=== PATIENT | male | born 1955 | race Caucasian/White ===

== ENCOUNTER → 2018-03-26 | Outpatient (CLI) | payer OTHER ==
[~2018-03-26] MED LIST: ADULT LOW DOSE81 MG PO; ASPIRIN EC325 M1; CELEBREX 200 M200 MG PO; DOCUSATE SODIU100 MG PO; FISH OIL PO; FLOMAX0.4 MG PO; GLUCOSAMINE &1 EAC1 PO; HYDROCODON-ACE1 EAC7 PO; MOBIC15 MG PO; MULTIVITAMINS1 EAC7 PO; OXYCODONE HCL5 M1 PO; PROBIOTIC1 EAC2 PO; RESVERATROL100 MG PO; TUMERIC; TUMERSAID TABL1 EACH PO; VITAMIN C PO; VITAMIN D1000 UNI1 PO; VITAMIN D2000 UNIT PO; VITAMIN K240 MCG PO; XARELTO10 M1 PO
--- NOTE | ~2018-03-26 | PAINCON ---
[address] [address] PAIN MANAGEMENT CONSULTATION Name: KESHA SALDANA Room: [facility].Hever.#: [id number] Admission: 03/26/18 Attend Phys: Tucker Leger MD Discharge: Date of : 53 Report #: [id number] THIS REPORT FOR: //name// CC: Tucker Shankar DATE OF SERVICE: 03/26/2018 PRIMARY CARE PHYSICIAN: Lawrence Shankar DO CHIEF COMPLAINT: Pain in the SI joint on the right. 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 He has a history of SI joint dysfunction. Notes that his pain has increased. Notes that the pain is worse when he is not moving. Pain is sometimes better with use of ibuprofen and ice. Working as a dentist bending and undergoing many contortion towards the course of day notes that his pain can be quite problematic and limiting. Rates it as a 4/10 at this juncture. In the past, he has undergone SI joint injections and noted significant improvement in the low back area as a result of that treatment. Notes that his pain is most problematic in the morning. He also has a history of cervical radiculopathy. He has had cervical facet injections. This was in the C2-C3, C3-C4 and C5-C6 facet areas. These are not very problematic today. ALLERGIES: No known drug allergies. CURRENT MEDICATIONS: Vitamin D3, multivitamins, resveratrol 100 mg, fish oil, turmeric. PAST MEDICAL HISTORY: 1. Sacroiliac joint dysfunction. 2. Cervical radiculopathy. 3. Prostate cancer. 4. Renal stones. PAST SURGICAL HISTORY: Knee surgery x 3, hernia repair, prostatectomy, back surgery, right hip arthroplasty. REVIEW OF SYSTEMS: Generally in good health. Joint pain. LABORATORY DATA: MRI of the cervical spine dated 04/22/2017. 1. C2-C3 left paracentral disk osteophyte complex with effacement of the thecal sac and mild narrowing of the left neural foramen. Facet joints are unremarkable. Thecal sac 1.3 cm AP. 2. C3-C4, left facet hypertrophy. Circumferential bulging annulus. Narrowing of the left neural foramen. Thecal sac 1.2 [place] [address] PAIN MANAGEMENT CONSULTATION Name: KESHA SALDANA Room: [facility]#: [id number] Admission: 03/26/18 Attend Phys: Tucker Leger MD Discharge: Date of : 53 Report #: [id number] 3. C4-C5 circumferential bulging annulus. Narrowing of the bilateral neural foramen. Mild bilateral facet hypertrophy. Thecal sac 1.3 cm AP. 4. C5-C6 marked narrowing of the disk space. Large circumferential bulging annulus. Facet hypertrophy. Narrowing of the neural foramen, greater on the left than the right. Effacement of the anterior thecal sac, which abuts the right cord. Thecal sac 1.0 cm AP. 5. C6-C7 circumferential bulging annulus. Minimal narrowing of the neural foramen. No significant facet hypertrophy. Effacement of the anterior thecal sac. The thecal sac 1.2 cm AP. 6. C7-T1 intervertebral disk facets and foramen appear normal. Thecal sac 1.4 cm AP. PAIN CLINIC ASSESSMENT/PQRS: 1. History of osteoarthritic, arthritic changes in the upper neck. 2. The patient does have osteoarthritic changes and has had his right hip replacement. 3. Height 5 feet 9 inches, weight 177 pounds, BMI is 26.1. 4. Vital signs: Blood pressure 126/75, heart rate 69, respiratory rate 16, room air saturation 98%, temperature 97.5. 5. Pain intensity 0/10 at this moment, increases to 4/10 by the end of the day. The patient is working this morning. 6. Fall risk. The patient has not fallen in the last 3 months. 7. Blood thinner. The patient is not on a blood thinning medication. 8. Hypertension. The patient is not being treated for hypertension. 9. Opioid greater than 6 weeks. The patient is not on an opioid regimen. 10. Risk assessment tool, low for opioid use. 11. Functional assessment tool, low. 12. Recreational drug use. The patient denies use of recreational drugs. 13. Tobacco: The patient does not smoke. 14. Alcohol. The patient denies frequent use of alcoholic beverages. PHYSICAL EXAMINATION: GENERAL: The patient is a well-developed, well-nourished white male. Appears his stated age. He is alert and oriented x 3. Affect is appropriate. Speech is fluent. HEENT: Normocephalic, atraumatic. Extraocular eye muscles intact. Sclerae nonicteric. Mucous membranes are moist. NECK: Without adenopathy or JVD reasonably good range of motion. Muscle strength in the upper extremity judged to be 5/5 for the major muscle groups. Deep tendon reflexes +2 at the biceps bilaterally. The patient without significant scoliosis, kyphosis or lordosis. The patient has some pain in the right hip. Danyel sign is positive on the right side. He has pain increase in the posterior portion of his back in the area of the SI joint. Left Danyel's sign negative. No lumbar radicular complaints. Forward bending is not problematic. Left and right lateral bending are not very problematic, does have some pain in the left and right SI joint [place] [address] PAIN MANAGEMENT CONSULTATION Name: KESHA SALDANA Room: [facility] Valentina#: [id number] Admission: 03/26/18 Attend Phys: Tucker Leger MD Discharge: Date of : 53 Report #: [id number] IMPRESSION: 1. Right sacroiliac joint dysfunction. 2. Cervical radiculopathy. 3. Prostate cancer. 4. Renal stones. RECOMMENDATIONS: We discussed treatment options with the patient. Risks and benefits of an SI joint injection were discussed. The patient has had similar complaints in the past years. SI joint injections have been quite beneficial. At this juncture, he would like to proceed with an SI joint injection. The risk and benefits of the procedure were discussed with the patient. He was then taken to the procedure area where he was then assisted in getting on the examination table. His back was sterilely prepped with a Betadine solution. The right SI joint area was identified. A skin wheal with 0.25% bupivacaine was injected. A 20-gauge spinal needle was then directed into the right SI joint area. Aspiration was negative. A total of 80 mg Depo-Medrol with 3 mL, 0.5% bupivacaine was injected. The patient remained in the pain clinic for an appropriate amount of time. There were no complications. He will follow up in the future as needed. We would like to thank you for letting us participate in his care. We hope he continues to improve. By: [id number]. Kayode Leger MD /PMT
== END | disposition home or self-care (01) ==
LOC: M.PC 11:05
DX: M53.3 Sacrococcygeal disorders, not elsewhere classified (principal); M54.12 Radiculopathy, cervical region; Z85.46 Personal history of malignant neoplasm of prostate; Z87.442 Personal history of urinary calculi; Z98.890 Other specified postprocedural states; Z96.641 Presence of right artificial hip joint; Z79.899 Other long term (current) drug therapy

== ENCOUNTER → 2018-04-23 | Outpatient (CLI) | payer OTHER ==
[~2018-04-23] MED LIST changes: +CELEBREX 200 M200 M1 PO; +IBUPROFEN 800800 M1 PO
--- NOTE | ~2018-04-23 | PAINCON ---
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 He suffers from pain and discomfort in the low back area. Findings at that time were consistent with SI joint dysfunction. He underwent a SI joint injection. Overall, things improve somewhat. He was given a nonsteroidal anti-inflammatory by his primary physician. Seen by the physical therapist and given activities. Also seen by his orthopaedic to had done his hip surgery. Overall, things point that his hip is okay. It appears that most of his pain is at this juncture coming from the piriformis muscle. He has returned today for a piriformis muscle injection. ALLERGIES: No known drug allergies. CURRENT MEDICATIONS: Vitamin D3, multivitamins, resveratrol 100 mg, fish oil, turmeric. PAIN CLINIC ASSESSMENT/PQRS: 1. The patient has osteoarthritic changes involving his right hip. It has been replaced. Some arthritic changes in his upper neck. The patient is not being treated for rheumatoid arthritis. 2. Height 5 feet 9 inches, weight 173 pounds, BMI is 25. 3. Blood pressure 143/85, heart rate 60, respiratory rate 16, room air saturation 99%, temperature 98.1. 4. Pain intensity 03/05. 5. Fall history: The patient has not fallen in the last 3 months. 6. Blood thinner. The patient is not on a blood thinning medication. 7. Hypertension. The patient is not being treated for hypertension. 8. Opioid greater than 3 weeks. The patient is not on opioid regimen. 9. Risk assessment tool, low for opioid use. 10. Functional assessment tool, low. 11. Recreational drug use. The patient denies use of recreational drugs. 12. Tobacco: The patient does not smoke. 13. Alcohol: The patient denies frequent use of alcoholic beverages. PHYSICAL EXAMINATION: GENERAL: The patient is a well-developed, well-nourished white male. Appears his stated age. He is alert and oriented x 3[place] [address] PAIN MANAGEMENT CONSULTATION Name: KESHA SALDANA Room: [facility]#: [id number] Admission: 04/23/18 Attend Phys: Tucker Leger MD Discharge: Date of : 53 Report #: [id number] is slow. HEAD, EYES, EARS, NOSE, AND THROAT: Normocephalic, atraumatic. Extraocular eye muscles intact. Sclerae nonicteric. Mucous membranes are moist. NECK: Without adenopathy or JVD. The patient without significant lordosis, kyphosis. Does have increased pain with rotation of his hip. Palpation over the piriformis muscle shows signs of irritation. Stretching with the right hip toward the midline causes increased pain and discomfort in the piriformis muscle area. The patient is not having pain radiating down into his leg. Does not appear to be a sciatic nerve root irritation, but more piriformis muscle irritation at this juncture. RECOMMENDATIONS: We discussed treatment options with the patient. Risks and benefits of a trigger point and of an injection in the piriformis muscle was discussed. Possible complications which could include bleeding, worsening of pain, no improvement in pain, nerve damage, numbness along the course of the sciatic nerve were discussed. The patient elects to proceed. PROCEDURE NOTE: The patient was taken to the procedure area. He was assisted in getting on the examination table. A pillow was placed under his abdomen to bolster and improved positioning. His back was sterilely prepped with a Betadine solution on 3 occasions and allowed to dry. Fluoroscopy using anterior and posterior viewing were implemented. The right posterior superior iliac spine area was identified. The lateral portion of the sacrum was identified. At approximately a lateral approach was made and a skin wheal was placed. Aspiration was negative. A 25-gauge needle was then dropped down below the sacrum and a pop was felt. Aspiration was negative. Injection of 1.5 mL of contrast dye were injected. A pattern show any movement from the sacrum, lateral to the greater trochanteric area was noted. A total of 5 mL of 1% lidocaine and 5 mL of 0.25% bupivacaine with 40 mg triamcinolone was injected. The patient tolerated the procedure well. There were no complications. He remained in the pain clinic for an appropriate amount of time. He will follow up in the future. There were no complaints of numbness in the area of the sciatic nerve. There were no complaints of pain or discomfort during the injection. The patient remained in the pain clinic for an appropriate amount of time. He will follow up in the future as needed. We would like to thank you for letting us to participate in his care. We hope he continues to improve. By: [id number]. MD WISAM Grant
== END | disposition home or self-care (01) ==
LOC: M.PC 05:04
DX: M79.18 Myalgia, other site (principal); M16.11 Unilateral primary osteoarthritis, right hip; Z96.641 Presence of right artificial hip joint; Z79.899 Other long term (current) drug therapy; Z98.890 Other specified postprocedural states

== ENCOUNTER → 2019-03-09 | Outpatient (CLI) | payer OTHER ==
--- NOTE | ~2019-03-09 | PAINCON ---
[address] [address] PAIN MANAGEMENT CONSULTATION Name: LESKESHAALIREZA CONDON Room: [facility].Hever.#: [id number] Admission: 03/09/19 Attend Phys: Tucker Leger MD Discharge: Date of : 53 Report #: [id number] THIS REPORT FOR: //name// CC: Tucker Shankar DO DATE OF SERVICE: 03/09/2019 PRIMARY CARE PHYSICIAN: Lawrence Shankar DO CHIEF COMPLAINT: Right low back pain in the piriformis muscle area. 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 He has returned to the pain clinic for evaluation. The patient had piriformis pain about a year ago. He underwent an injection and has had significantly improved pain since that time. He has noticed a slow return of the pain in the right buttocks area. He notes that the pain is worse when he is bending over the patients for injections as well as certain other activities required by his specialty. He has returned today with the hopes of undergoing a piriformis muscle injection to help decrease the pain and discomfort he has been experiencing. ALLERGIES: No known drug allergies. CURRENT MEDICATIONS: Vitamin D3, multivitamins, resveratrol 100 mg, fish oil, and turmeric. PAIN CLINIC ASSESSMENT AND PQRS: 1. The patient has osteoarthritic changes in his right hip. He has had it replaced. He is experiencing some arthritic changes in his upper neck. He is not being treated for rheumatoid arthritis. 2. Height 5 feet 9 inches, weight 177 pounds, BMI is 26.2. 3. Vital signs: Blood pressure is 140/80, heart rate 70, respiratory rate 18, room air saturation is 98%, and temperature 98.2. 4. Pain intensity was a 2/10. 5. Fall history: The patient has not fallen in the last 3 months. 6. Blood thinner. The patient is not on a blood thinning medication. 7. Hypertension. The patient is not being treated for hypertension. 8. Opioids greater than 3 weeks. The patient receives medication. The patient is not on an opioid regimen. 9. Functional assessment tool, low for opioid use. Functional assessment reviewed. 10. Recreational drug use: The patient denies. 11. Tobacco: The patient does not smoke. 12. Alcohol. The patient denies frequent use [place] [address] PAIN MANAGEMENT CONSULTATION Name: KESHA SALDANA Room: [facility]#: [id number] Admission: 03/09/19 Attend Phys: Tucker Leger MD Discharge: Date of : 53 Report #: [id number] PHYSICAL EXAMINATION: GENERAL: The patient is a well-developed, well-nourished white male. Appears his stated age. He is alert and oriented x 3. His affect is appropriate. Speech is fluent. HEENT: Normocephalic, atraumatic. Extraocular eye muscles intact. Sclerae nonicteric. Mucous membranes are moist. NECK: Without adenopathy or JVD. MUSCULOSKELETAL: The patient without significant scoliosis, kyphosis or lordosis. The patient has some pain and discomfort in the right hip area, has increased pain and discomfort and notes increased pain with movement, inversion of his foot on the right side and rotation of his leg inward. IMPRESSION: 1. Right piriformis muscle syndrome. 2. 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 3. History of cervical spondylosis without myelopathy. RECOMMENDATIONS: We discussed treatment options with the patient. He underwent a piriformis muscle injection in 03/2018. He has had good relief from the piriformis muscle syndrome pain. He has returned today with a desire to undergo an injection. Risks and benefits of the procedure were discussed. They include but are not limited to infection, increased muscle soreness, nerve damage, bleeding and the patient elects to proceed. PROCEDURE NOTE: The patient was taken to the procedure area. He was then assisted in getting on examination table. His back was sterilely prepped with a Betadine solution. This was done on three occasions and allowed to dry. Fluoroscopy using anterior and posterior viewing was implemented. The right lateral sacral area was identified. A skin wheal was performed using a 25-gauge needle. A 25-gauge spinal needle was advanced. At the lateral border of the sacrum, it was advanced. A pop was felt. Aspiration was negative. 1.5 mL of contrast dye was injected. A pattern showing movements away from the sacrum to the lateral portion of the greater trochanteric area was noted. A total of 5 mL of 0.5% bupivacaine and 40 mg of triamcinolone was injected. The patient tolerated the procedure well. There were no complications. There was no numbing of his legs. There were no systemic complaints. He remained in the pain clinic for an appropriate amount of time. We would like to thank you for letting us participate in his care. We hope he continues to improve. By: [id number]. Kayode Leger MD /harika
== END | disposition home or self-care (01) ==
LOC: M.PC 03-04 08:50
DX: M79.18 Myalgia, other site (principal); G57.01 Lesion of sciatic nerve, right lower limb; M16.11 Unilateral primary osteoarthritis, right hip; Z96.641 Presence of right artificial hip joint; Z98.890 Other specified postprocedural states; Z79.899 Other long term (current) drug therapy

== ENCOUNTER → 2019-06-14 | Outpatient (CLI) | payer MEDICARE, OTHER | LOC: M.LAB 12:52 | DX: Z03.818 Encounter for observation for suspected exposure to other biological agents ruled out (principal) ==